=== PATIENT | male | born 1945 | race Caucasian/White ===

== ENCOUNTER 2020-04-11 18:07 | Emergency (ER) | payer MEDICARE ==
[~2020-04-11] VITALS: Ht 177.8 cm; Wt 85.2 kg
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
--- NOTE | 2020-04-11 18:54 | NUR ---
REPORT RECEIVED FROM NACHO RN. PT RESTING ON GURNEY, MONITORING IN PLACE, CALL LIGHT WITHIN REACH, ALL SAFETY MEASURES IN PLACE.
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
[2020-04-11] MEDS ORDERED: FLUORESCEIN OPHTHALMIC 1 MG STRIP EACHEYE ONE (19:30)
[2020-04-11] MEDS ORDERED: PROPARACAINE OPHTH 0.5%, 15ML EACHEYE ONE (19:30)
[2020-04-11] MEDS ORDERED: FLUORESCEIN OPHTHALMIC 1 MG STRIP ONE (19:46)
[2020-04-11] MEDS ORDERED: PROPARACAINE OPHTH 0.5%, 15ML ONE (19:46)
[2020-04-11 20:35] VITALS: BP 143/85
--- NOTE | 2020-04-11 20:36 | NUR ---
PT RESTING ON GURTRACEY WITH FAMILY AT . MONITORING IN PLACE, CALL LIGHT WITHIN REACH.
== END 2020-04-11 21:25 | disposition home or self-care (01) ==
LOC: ED 18:54
DX: H10.213 Acute toxic conjunctivitis, bilateral (principal)
CPT/HCPCS: 99283